=== PATIENT | female | born 1970 | race African-American/Black ===

== ENCOUNTER 2018-03-05 08:41 | Emergency (ER) | payer OTHER ==
[~2018-03-05] VITALS: Ht 157.5 cm; Wt 88.0 kg
[2018-03-05 09:18] VITALS: BP 138/84
--- NOTE | 2018-03-05 09:20 | PHYS DOC ---
Past History Past Medical History: A-Fib, Hypertension Past Surgical History: Hysterectomy Alcohol Use: None Drug Use: None Adult General Chief Complaint Chief Complaint: Neck Pain HPI HPI Patient is a 47 year old female who presents with neck discomfort and high blood pressure. The next discomfort started several days ago, on one side, her right side, no trauma, no paresthesias. Patient describes some headaches, not worst headache of life, that also start in the back. Patient denies any chest pain or palpitations. Patient is taking no pain medicine for the neck discomfort. She notes that she has been short of breath for the past 3 weeks. Actually the shortness of breath gets better with exertion in going out for a walk. Patient has a previously prescribed supply of Xanax that she has not taken. Patient is concerned because her partner at age 47. Patient also has a history of atrial fibrillation and recently returned from [place], an [address] where she stopped only for gasoline. Denies any leg swelling but notes that she has to sleep more upright, propped up on pillows over the past several weeks as well. Patient did see her primary care physician for this shortness of breath and was told to "lose weight." [] Review of Systems Review of Systems Constitutional: Denies fever or chills [] Eyes: Denies change in visual acuity, redness, or eye pain [] HENT: Denies nasal congestion or sore throat [] Respiratory: Denies cough or shortness of breath [] Cardiovascular: No additional information not addressed in HPI [] GI: Denies abdominal pain, nausea, vomiting, bloody stools or diarrhea [] : Denies dysuria or hematuria [] Musculoskeletal: Denies back pain or joint pain [] Integument: Denies rash or skin lesions [] Neurologic: Denies headache, focal weakness or sensory changes [] Endocrine: Denies polyuria or polydipsia [] All other systems were reviewed and found to be within normal limits, except as documented in this note. Current Medications Current Medications Current Medications Medications (Trade) Dose Ordered Sig/Norbert Start Time Stop Time Status Last Admin Dose Admin Acetaminophen (Tylenol) 500 mg 1X ONCE 03/05/18 09:15 03/05/18 09:16 UNV Allergies Allergies Allergies Coded Allergies Type Severity Reaction Last Updated Verified cephalexin Allergy Unknown 03/05/18 Yes Physical Exam Physical Exam Constitutional: Well developed, well nourished, no acute distress, non-toxic appearance. [] HENT: Normocephalic, atraumatic, bilateral external ears normal, oropharynx moist, no oral exudates, nose normal. [] Eyes: PERRLA, EOMI, conjunctiva normal, no discharge. [] Neck: Normal range of motion, no tenderness, supple, no stridor. [] Cardiovascular:Heart rate regular rhythm, no murmur [] Lungs & Thorax: Bilateral breath sounds clear to auscultation [] Abdomen: Bowel sounds normal, soft, no tenderness, no masses, no pulsatile masses. [] Skin: Warm, dry, no erythema, no rash. [] Back: No tenderness, no CVA tenderness. [] Extremities: No tenderness, no cyanosis, no clubbing, ROM intact, no edema. [] Neurologic: Alert and oriented X 3, normal motor function, normal sensory function, no focal deficits noted. [] Psychologic: Affect normal, judgement normal, mood normal. [] Current Patient Data Vital Signs Vital Signs Date Time Temp Pulse Resp B/P (MAP) Pulse Ox O2 Delivery O2 Flow Rate FiO2 03/05/18 08:51 100 Room Air 03/05/18 08:51 65 20 EKG EKG EKG shows a sinus rhythm, no ST elevation, rate of 69 bpm, normal axis, QTC 430 ms, no old EKG available for comparison.[] Radiology/Procedures Radiology/Procedures PORTABLE CHEST 1V Clinical Indication: short of breath x 1 day, hx of high BP and A Fib, pt shielded Comparison: None. Findings: The cardiomediastinal silhouette is normal. Lungs are clear. There is no pneumothorax. No pleural effusion is appreciated. No acute bone abnormality. IMPRESSION: No acute cardiopulmonary process. [] Course & Med Decision Making Course & Med Decision Making Pertinent Labs and Imaging studies reviewed. (See chart for details) Medical decision making: There is no evidence of pulmonary embolism given the normal d-dimer, no evidence of atrial fibrillation, no congestive heart failure , no evidence of this being an acute coronary syndrome, no evidence of significant neurologic or vascular compromise. Believe this to be more muscle strain probably triggering an increase in her blood pressure. ED course: Patient arrived, was placed in bed, tolerated exam well. After the return of the lab and imaging studies, these were discussed with the patient who voiced understanding. All questions were answered. Patient was discharged in improved condition.[] Dragon Disclaimer Dragon Disclaimer This electronic medical record was generated, in whole or in part, using a voice recognition dictation system. Departure Departure: Impression: Primary Impression: Neck pain Additional Impression: Hypertension Disposition: 01 HOME, SELF-CARE Condition: Referrals: ARTURO MIX MD (PCP) Follow-up in 2 days Patient Instructions: Hypertension, Muscle Cramps, [id number], Shortness of Breath Additional Instructions: Follow-up with your regular doctor. Take your blood pressure medicine as prescribed. Return to the ER if worsening difficulty breathing or any other concerns. Scripts Orphenadrine Citrate (ORPHENADRINE CITRATE) 100 Mg Tablet.er 100 MG PO BID for BACK PAIN, #20 TAB.SR Prov: RICHAR MENDOZA DO 03/05/18 Meloxicam (MELOXICAM) 7.5 Mg Tablet 7.5 MG PO DAILY for PAIN, #20 TAB Prov: RICHAR MENDOZA DO 03/05/18 Problem Qualifiers Additional Impression: Hypertension Hypertension type: unspecified Qualified Codes: I10 - Essential (primary) hypertension RICHAR MENDOZA DO Mar 05, 2018 09:20
[2018-03-05 09:28] LABS: BASO % 1 % (0-3); EOS % 1 % (0-3); HEMATOCRIT 42.1 % (36.0-47.0); HEMOGLOBIN 14.1 g/dL (12.0-15.5); LYMPH # 2.3 x10^3/uL (1.0-4.8); LYMPH % 27 % (24-48); MEAN CORPUSCULAR HEMOGLOBIN 30 pg (25-35); MEAN CORPUSCULAR HGB CONC 34 g/dL (31-37); MEAN CORPUSCULAR VOLUME 90 fL (79-100); MONO # 0.4 x10^3/uL (0.0-1.1); MONO % 5 % (0-9); NEUT # 5.5 x10^3uL (1.8-7.7); NEUT % 67 % (31-73); PLATELET COUNT 264 x10^3/uL (140-400); RED BLOOD COUNT 4.68 x10^6/uL (3.50-5.40); RED CELL DISTRIBUTION WIDTH 13.1 % (11.5-14.5); WHITE BLOOD COUNT 8.3 x10^3/uL (4.0-11.0)
[2018-03-05 09:40] LABS: ALBUMIN/GLOBULIN RATIO 0.9 (1.0-1.7); CALCIUM 8.7 mg/dL (8.5-10.1); CREATININE 0.7 mg/dL (0.6-1.0); GFR 108.5; MAGNESIUM 1.8 mg/dL (1.8-2.4); POTASSIUM 3.6 mmol/L (3.5-5.1); TOTAL BILIRUBIN 0.5 mg/dL (0.2-1.0); TOTAL PROTEIN 8.4 g/dL (6.4-8.2)
[2018-03-05] MEDS ORDERED: ACETAMINOPHEN 500 MG TABLET PO ONE (09:40)
--- NOTE | 2018-03-05 09:43 | RAD ---
PORTABLE CHEST 1V Clinical Indication: short of breath x 1 day, hx of high BP and A Fib, pt shielded Comparison: None. Findings: The cardiomediastinal silhouette is normal. Lungs are clear. There is no pneumothorax. No pleural effusion is appreciated. No acute bone abnormality. IMPRESSION: No acute cardiopulmonary process. Electronically signed by: Davis Reyez MD (03/05/2018 9:39 AM) [facility]
[2018-03-05 10:20] LABS: BILIRUBIN,URINE NEG (NEG); CLARITY,URINE HAZY; COLOR,URINE YELLOW; GLUCOSE,URINE NEG (NEG)
[2018-03-05 10:21] LABS: BACTERIA,URINE FEW /HPF (0-FEW); NITRITE,URINE NEG (NEG); RBC,URINE 0 /HPF (0-2); SQUAMOUS EPITHELIAL CELL,UR FEW /LPF; UROBILINOGEN,URINE 0.2 mg/dL (0.2 mg/dL); WBC,URINE 0 /HPF (0-4)
[2018-03-05] MEDS ORDERED: MELO7.5T29 PO (10:40)
[2018-03-05] MEDS ORDERED: ORPH-16 PO (10:40)
--- NOTE | 2018-03-05 15:57 | EKG ---
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
== END 2018-03-05 10:37 | disposition home or self-care (01) ==
LOC: ER 08:41
DX: I10 Essential (primary) hypertension (principal); M54.2 Cervicalgia; R51 Headache; I48.91 Unspecified atrial fibrillation; Z88.1 Allergy status to other antibiotic agents
CPT/HCPCS: 36415; 71045; 80053; 81001; 83735; 83880; 84443; 84484; 85025; 85379; 85610; 93005; 99284